=== PATIENT | male | born 2000 | race African-American/Black ===

== ENCOUNTER 2022-10-22 17:44 | Emergency (ER) | payer OTHER ==
[~2022-10-22] VITALS: Ht 180.3 cm; Wt 81.6 kg
[2022-10-22 18:11] VITALS: BP 127/89; TEMP 98.1
== END 2022-10-22 22:10 | disposition home or self-care (01) ==
LOC: ED 17:44
PROC: 0HQGXZZ Repair Left Hand Skin, External Approach (ICD-10-PCS; principal; 2022-10-22)
DX: S61.412A Laceration without foreign body of left hand, initial encounter (principal); F17.200 Nicotine dependence, unspecified, uncomplicated; W45.8XXA Other foreign body or object entering through skin, initial encounter
CPT/HCPCS: 99283